=== PATIENT | female | born 1955 | race Caucasian/White ===

== ENCOUNTER → 2017-01-14 | Outpatient (CLI) | payer OTHER | LOC: CIMAGING 12:12 | PROVIDERS: ATTEND Family Medicine | DX: Z12.31 Encounter for screening mammogram for malignant neoplasm of breast (principal) | CPT/HCPCS: G0202 ==

== ENCOUNTER → 2017-02-24 | Outpatient (CLI) | payer OTHER | LOC: CIMAGING 12:39 | PROVIDERS: ATTEND Family Medicine | DX: R92.8 Other abnormal and inconclusive findings on diagnostic imaging of breast (principal) | CPT/HCPCS: 76641-PO; G0206 ==

== ENCOUNTER → 2017-10-01 | Outpatient (CLI) | payer BC, OTHER | LOC: CIMAGING 13:13 | PROVIDERS: ATTEND Family Medicine | DX: R92.8 Other abnormal and inconclusive findings on diagnostic imaging of breast (principal) ==

== ENCOUNTER → 2018-02-04 | Outpatient (CLI) | payer BC | LOC: CIMAGING 14:10 | PROVIDERS: ATTEND Family Medicine | DX: Z12.31 Encounter for screening mammogram for malignant neoplasm of breast (principal) ==

== ENCOUNTER 2018-10-25 21:56 | Emergency (ER) | payer BC ==
[2018-10-25 22:09] VITALS: BP 115/81
[2018-10-25] MEDS ORDERED: ACETAMINOPHEN 500 MG TAB PO ONE (22:35)
--- NOTE | 2018-10-25 22:36 | EDPHY ---
H & P Time Seen by Provider: 10/25/18 22:18 HPI/ROS: This patient had a mechanical fall crossing the street when she stepped in a pothole crosswalk and landed on outstretched left hand injuring her left wrist with pain to the ulnar aspect that is 6/10 intensity after taking 400 mg of ibuprofen at 9:00 p.m. Tonight shortly after the fall. She is accompanied by her . She reports associated superficial abrasion to the right lateral leg that she care for home and is not interested in any further treatment of her abrasion here. She denies any other injuries. The wrist pain worsens with movement and she notes no other exacerbating factors. ROS: Neuro: No numbness or tingling. No head injury Musculoskeletal: No midline neck or back pain Pulmonary: No chest wall pain Cardiovascular: No pallor to the affected extremity. 5 point review of symptoms is performed and otherwise negative with exception of pertinent positives and negatives listed in HPI and ROS Smoking Status: Never smoked Physical Exam: Physical Exam Vital signs are normal. General: No acute distress HEENT: Atraumatic. Eyes: Pupils equal and react to light. Extraocular motions are intact. Lungs: No respiratory distress. Cardiac: Brisk capillary refill is intact throughout. Pulses are 2+ and symmetric in the affected extremity. Skin: No rash or pallor. There is a small superficial abrasion the right lateral leg with active bleeding noted line bony tenderness. Extremities: Atraumatic normal except for left wrist Left wrist: Patient has mild tenderness to the ulnar aspect of wrist around the ulnar styloid without significant ecchymosis or swelling. No radial tenderness, and chemical snuffbox tenderness, pain with axial loading thumb or hand swelling or tenderness. Neuro: Alert and oriented x3 with no sensorimotor deficits. Initial differential diagnosis: Wrist sprain, wrist contusion, wrist fracture Constitutional: Initial Vital Signs Temperature (C) 36.6 C 10/25/18 22:08 Heart Rate 88 10/25/18 22:08 Respiratory Rate 18 10/25/18 22:08 Blood Pressure 115/81 H 10/25/18 22:08 O2 Sat (%) 96 10/25/18 22:08 O2 Delivery Mode Room Air Allergies/Adverse Reactions: erythromycin base [From Erythrocin] Allergy (Verified 10/25/18 22:07) Sulfa (Sulfonamide Antibiotics) Allergy (Verified 10/25/18 22:07) Home Medications: Medication Instructions Recorded Skin Medicine 10/25/18 traMADol [Ultram 50 mg (*)] 50 - 100 mg PO Q4 PRN #10 tab 10/25/18 MDM/Departure - [facility] Imaging Results: Imaging Impressions Wrist X-Ray 10/25/18 22:06 Impression: No acute osseous findings. Wrist x-rays: Normal by my interpretation Medications Given: Discontinued Medications Acetaminophen (Tylenol) 1,000 mg PO EDNOW ONE Stop: 10/25/18 22:36 Last Admin: 10/25/18 22:40 Dose: 1,000 mg ED Course/Re-evaluation: Splinting: Velcro wrist splint is applied by our tech with patient neurovascular intact post splint application. Discussion: Patient with wrist sprain without evidence of fracture or other significant injuries. Counseled regarding sprain in some detail answered all her questions prior to discharge home with plan to follow up with Orthopedics if she is not improving with initial treatment plan of splinting, ice, ibuprofen , Tylenol tramadol if needed for pain that prevents sleep and limited activity over the next week. - Depart Disposition: Home, Routine, Self-Care Clinical Impression: Left wrist sprain Qualifiers: Encounter type: initial encounter Qualified Code(s): S63.502A - Unspecified sprain of left wrist, initial encounter Condition: Good Instructions: Wrist Sprain (ED) Additional Instructions: Diagnosis: Wrist sprain Plan: Ice 20 min at a time to 3 times a day for the next few days Velcro wrist splint when up and about until symptoms improve likely over the next 5-10 days. Ibuprofen Tylenol as needed for pain If you feel that you're not improving significantly with the above plan, then call [facility] to have further evaluation in 5-10 days. Prescriptions: traMADol [Ultram 50 mg (*)] 50 - 100 mg PO Q4 PRN #10 tab PRN Reason: breakthrough pain Referrals: Raheel Rivers MD [Medical Doctor] - As per Instructions
[2018-10-25] MEDS ORDERED: traMADol 50 MG TAB PO ONE (22:50)
== END 2018-10-25 22:58 | disposition home or self-care (01) ==
LOC: CED 21:56
DX: S63.502A Unspecified sprain of left wrist, initial encounter (principal); W19.XXXA Unspecified fall, initial encounter; Y92.410 Unspecified street and highway as the place of occurrence of the external cause
CPT/HCPCS: 73110-PO; 99283-ER; L3984